=== PATIENT | male | born 1945 | race Asian ===

== ENCOUNTER 2016-10-26 09:07 | Outpatient (CLI) | payer OTHER ==
[2016-10-26 09:28] LABS: PLATELET COUNT 211 K/uL (142-355)
[2016-10-26 10:16] LABS: POTASSIUM 3.8 mmol/L (3.6-5.2); SODIUM 139 mmol/L (136-145)
== END 2016-10-26 19:35 | disposition home or self-care (01) ==
LOC: LABW 09:07
PROVIDERS: Internal Medicine
DX: I10 Essential (primary) hypertension (principal); E78.00 Pure hypercholesterolemia, unspecified; Z12.5 Encounter for screening for malignant neoplasm of prostate; D64.89 Other specified anemias
CPT/HCPCS: 36415; 80053; 80061; 81000; 84153; 84443; 85027

== ENCOUNTER 2017-08-01 08:11 | Outpatient (CLI) | payer OTHER ==
[2017-08-01 08:29] LABS: PLATELET COUNT 227 K/uL (142-355)
== END 2017-08-01 19:59 | disposition home or self-care (01) ==
LOC: LABW 08:11
PROVIDERS: Internal Medicine
DX: I10 Essential (primary) hypertension (principal); Z12.5 Encounter for screening for malignant neoplasm of prostate
CPT/HCPCS: 36415; 80053; 80061; 81000; 84153; 84439; 84443; 85027

== ENCOUNTER 2018-01-05 10:36 | Outpatient (CLI) | payer OTHER | END 2018-01-05 22:09 | disposition home or self-care (01) | LOC: RAD 10:36 | DX: M17.11 Unilateral primary osteoarthritis, right knee (principal) ==

== ENCOUNTER 2018-02-14 09:44 | Outpatient (CLI) | payer OTHER ==
[2018-02-14 10:21] LABS: PLATELET COUNT 193 K/uL (142-355)
[2018-02-14 10:27] LABS: POTASSIUM 3.2 mmol/L (3.6-5.2)
== END 2018-02-14 21:20 | disposition home or self-care (01) ==
LOC: LABW 09:44
PROVIDERS: Internal Medicine
DX: I10 Essential (primary) hypertension (principal)
CPT/HCPCS: 36415; 80053; 80061; 81000; 84439; 84443; 85027

== ENCOUNTER 2018-09-11 08:57 | Outpatient (CLI) | payer OTHER ==
[2018-09-11 09:24] LABS: PLATELET COUNT 208 K/uL (142-355)
[2018-09-11 09:43] LABS: POTASSIUM 3.1 mmol/L (3.6-5.2)
== END 2018-09-11 22:20 | disposition home or self-care (01) ==
LOC: LABW 08:57
PROVIDERS: Internal Medicine
DX: N40.1 Benign prostatic hyperplasia with lower urinary tract symptoms (principal); I10 Essential (primary) hypertension; E78.00 Pure hypercholesterolemia, unspecified; M10.9 Gout, unspecified
CPT/HCPCS: 36415; 80053; 80061; 81000; 84153; 84443; 84550; 85027

== ENCOUNTER 2019-01-02 10:54 | Outpatient (CLI) | payer OTHER | END 2019-01-02 23:09 | disposition home or self-care (01) | LOC: US 10:54 | DX: M79.89 Other specified soft tissue disorders (principal) ==

== ENCOUNTER 2019-03-12 13:27 | Outpatient (CLI) | payer OTHER ==
[2019-03-12 14:24] LABS: PLATELET COUNT 214 K/uL (142-355)
[2019-03-12 15:10] LABS: POTASSIUM 3.5 mmol/L (3.6-5.2)
== END 2019-03-12 19:28 | disposition home or self-care (01) ==
LOC: LABW 13:27
PROVIDERS: Internal Medicine
DX: Z00.00 Encounter for general adult medical examination without abnormal findings (principal); Z12.5 Encounter for screening for malignant neoplasm of prostate; Z79.899 Other long term (current) drug therapy
CPT/HCPCS: 36415; 80053; 80061; 81000; 84153; 84439; 84443; 84550; 85027

== ENCOUNTER 2019-03-23 08:41 | Outpatient (CLI) | payer OTHER | END 2019-03-23 19:47 | disposition home or self-care (01) | LOC: US 08:41 | DX: Z13.6 Encounter for screening for cardiovascular disorders (principal); Z12.2 Encounter for screening for malignant neoplasm of respiratory organs; Z87.891 Personal history of nicotine dependence ==

== ENCOUNTER 2019-11-26 10:41 | Outpatient (CLI) | payer OTHER | END 2019-11-26 19:16 | disposition home or self-care (01) | LOC: MRI 10:41 | DX: M25.561 Pain in right knee (principal); M54.5 Low back pain; M54.16 Radiculopathy, lumbar region ==

== ENCOUNTER 2019-12-27 10:59 | Emergency (ER) | payer OTHER ==
[~2019-12-27] VITALS: Ht 180.3 cm; Wt 111.6 kg
[2019-12-27 12:15] VITALS: BP 134/75; TEMP 98.9
== END 2019-12-27 12:17 | disposition home or self-care (01) ==
LOC: ED 10:59
DX: M79.661 Pain in right lower leg (principal)
CPT/HCPCS: 99283

== ENCOUNTER 2020-06-20 07:41 | Outpatient (CLI) | payer OTHER | END 2020-06-20 21:09 | disposition home or self-care (01) | LOC: CT 07:41 | PROVIDERS: ATTEND Internal Medicine | DX: Z12.2 Encounter for screening for malignant neoplasm of respiratory organs (principal); Z13.6 Encounter for screening for cardiovascular disorders; R91.8 Other nonspecific abnormal finding of lung field | CPT/HCPCS: G0297-TC ==

== ENCOUNTER 2022-03-08 13:54 | Outpatient (CLI) | payer OTHER ==
[2022-03-08 14:22] LABS: PLATELET COUNT 211 K/uL (142-355)
[2022-03-08 14:44] LABS: POTASSIUM 3.9 mmol/L (3.6-5.2)
== END 2022-03-08 20:30 | disposition home or self-care (01) ==
LOC: LAB 13:54
PROVIDERS: ATTEND Internal Medicine
DX: Z00.00 Encounter for general adult medical examination without abnormal findings (principal); H25.9 Unspecified age-related cataract; Z79.899 Other long term (current) drug therapy
CPT/HCPCS: 80053; 80061; 84439; 84443; 85027